=== PATIENT | female | born 1965 | race Caucasian/White ===

== ENCOUNTER → 2016-10-29 | Outpatient (CLI) | payer OTHER ==
--- NOTE | 2016-10-29 15:32 | DX ---
Foot Minimum 3 Views Left History: Trauma, pain. Tripped over curb Comparison: None. Findings: No acute fracture or dislocation identified. Plantar calcaneal spur. Mild hallux valgus fir st metatarsophalangeal joint with small osteophytes and mild joint space narrowing. No evidence of fr acture of the toes, metatarsals or tarsal bones. Impression: 1. No definite acute fracture. 2. Plantar calcaneal spur. 3. Mild osteoarthritis first metatarsophalangeal joint with mild hallux valgus.
== END ==
LOC: BRMIMAGING 09:46
PROVIDERS: ATTEND Physician Assistant Medical
DX: M19.072 Primary osteoarthritis, left ankle and foot (principal); M77.32 Calcaneal spur, left foot; M20.12 Hallux valgus (acquired), left foot
CPT/HCPCS: 73630-PO

== ENCOUNTER → 2017-03-12 | Outpatient (CLI) | payer OTHER | LOC: BRMIMAGING 11:16 | PROVIDERS: ATTEND Family Medicine | DX: S99.921A Unspecified injury of right foot, initial encounter (principal) | CPT/HCPCS: 73630-PO ==